=== PATIENT | female | born 1945 | race Caucasian/White ===

== ENCOUNTER 2023-01-29 15:13 | Inpatient (IN) | payer OTHER ==
[~2023-01-29] VITALS: Ht 157.5 cm; Wt 69.9 kg
[2023-02-01] MEDS ORDERED: PROTONIX40 MG PO (11:31)
[2023-02-01] MEDS ORDERED: COZAAR100 MG PO (11:32)
[2023-02-05] MEDS ORDERED: FLUMAZENIL0.1 MG/1 M (11:21)
[2023-02-05] MEDS ORDERED: FAMOTIDINE20 MG (11:21)
[2023-02-05] MEDS ORDERED: DIPHENHYDR50 MG/1 M1 (11:21)
[2023-02-05] MEDS ORDERED: GABAPENTIN600 MG (11:22)
[2023-02-05] MEDS ORDERED: ROSUVASTATIN CA10 MG (11:22)
[2023-02-05] MEDS ORDERED: METOPROLOL TART50 MG (11:22)
[2023-02-05] MEDS ORDERED: CILOSTAZOL50 MG (11:22)
[2023-02-05] MEDS ORDERED: ALENDRONATE SOD70 MG (11:22)
[2023-02-07] MEDS ORDERED: SIMETHICONE80 MG PO (12:44)
== END 2023-02-07 13:31 | disposition home or self-care (01) | DRG 330 ==
LOC: O/R 02-05 07:02 → SURG 02-05 09:45 → SURH 02-05 12:22 → SURG 02-05 14:45
PROVIDERS: ADMIT Surgery; ATTEND Surgery
PROC: 0DBP4ZZ Excision of Rectum, Percutaneous Endoscopic Approach (ICD-10-PCS; 2023-02-05)
PROC: 07BC4ZZ Excision of Pelvis Lymphatic, Percutaneous Endoscopic Approach (ICD-10-PCS; 2023-02-05)
PROC: 0DJD8ZZ Inspection of Lower Intestinal Tract, Via Natural or Artificial Opening Endoscopic (ICD-10-PCS; 2023-02-05)
PROC: 0DTN4ZZ Resection of Sigmoid Colon, Percutaneous Endoscopic Approach (ICD-10-PCS; principal; 2023-02-05 14:45)
DX: C18.7 Malignant neoplasm of sigmoid colon (principal); K92.1 Melena; R59.0 Localized enlarged lymph nodes; I11.9 Hypertensive heart disease without heart failure